=== PATIENT | male | born 1985 | race Caucasian/White ===

== ENCOUNTER 2019-05-06 15:47 | Emergency (ER) | payer OTHER ==
--- NOTE | 2019-05-07 14:23 | CR ---
Date of Service: 05/06/19 Clinical Data: Ankle injury - fell 19 feet RIGHT ANKLE: There is soft tissue swelling over the lateral malleolus. There is a faint lucency through the distal fibula suspicious for a nondisplaced fracture. No other osseous abnormalities. Clinical correlation or followup imaging should be considered. [id number] [facility]
--- NOTE | 2019-05-08 08:17 | ER ---
DATE OF SERVICE: 05/06/2019 REASON FOR EMERGENCY ROOM VISIT: Right ankle injury. HISTORY: This 33-year-old man was setting up his deer stand, when he fell approximately 19 feet, landing on his feet and twisted his ankle in, on landing, and felt a popping sensation in his right ankle. He experienced pain and swelling almost immediately and crawled approximately 200 yards, where one of his friends picked him up and brought him to the emergency room. He denies any trauma to any other area. He denies any head trauma, and he landed on his feet. PAST SURGERY HISTORY: 1. Left tib-fib fracture. 2. Right knee arthroscopy. 3. Left labrum repair. MEDICATIONS: None. ALLERGIES: NONE. REVIEW OF SYSTEMS: Pertinent positives and negatives as listed in the HPI. PHYSICAL EXAMINATION: VITAL SIGNS: As noted in the EMR. GENERAL: He was in no acute distress. EXTREMITIES: Examination of his right ankle reveals swelling located principally laterally below the lateral malleolus to a lesser degree medially beneath the distal to the medial malleolus. He had some diffuse tenderness and it was difficult to assess any instability because of pain and swelling. Distal pulses are normal. Distal sensation is normal. There is no actual gross deformity, apart from the swelling. No bony crepitus was detected. He has no pain on passive range of motion of his knees and hips. His left ankle is normal on gross exam. X-RAYS: Three views of his right ankle reveal only soft tissue swelling but no bony abnormalities or evidence of dislocation. He has no fracture. IMPRESSION: Right ankle sprain. PLAN: I recommended that we Yayo. We placed an Yayo wrap around his ankle and fit him for crutches and advised him on nonweightbearing until he is able to follow up with his primary care physician in [place]. He will be returning to [place] on Wednesday (05/08/2019). He was instructed to ice the ankle for 20 minutes every 4 hours while awake. He can take ibuprofen and Tylenol for discomfort, which should be adequate. All questions were answered. He understands and agrees with this. TRUPTI/ANIVAL /[id number]
== END 2019-05-06 16:35 | disposition home or self-care (01) ==
LOC: LB.ED 15:47
DX: S93.401A Sprain of unspecified ligament of right ankle, initial encounter (principal); W17.89XA Other fall from one level to another, initial encounter; X50.1XXA Overexertion from prolonged static or awkward postures, initial encounter
CPT/HCPCS: 73610-RT; 99282